=== PATIENT | female | born 1980 | race Caucasian/White ===

== ENCOUNTER 2021-05-07 10:17 | Outpatient (CLI) | payer OTHER, SELFPAY ==
[2021-05-07 10:48] VITALS: BP 135/93; PULSE 84; RESP 18; TEMP 36.1; O2SAT 95; BMI 37.8
[2021-05-07 12:44] VITALS: BP 122/84; PULSE 83; RESP 17; TEMP 36.1; O2SAT 98
[2021-05-07 13:33] VITALS: BP 127/89; PULSE 71; RESP 17; TEMP 36.4; O2SAT 98
[2021-05-07 13:35] VITALS: BP 127/89; PULSE 71; RESP 17; TEMP 36.1; O2SAT 98
== END 2021-05-07 10:18 | disposition home or self-care (01) ==
PROVIDERS: PCP Family Medicine; Visit Provider Nurse Practitioner Family
DX: U07.1 COVID-19 (principal)
CPT/HCPCS: 96365

== ENCOUNTER 2022-01-06 16:20 | Outpatient (CLI) | payer OTHER, SELFPAY ==
--- NOTE | 2022-01-06 16:30 | XR_ITS ---
WS: [id number] Exam: XR foot RT min 3V* [id number] Date/Time of Exam: 01/06/2022 4:30 PM Reason For Exam: RIGHT FOOT PAIN, INJURY No fracture or dislocation. Articular relationships appear normal. No soft tissue foreign bodies are seen. Tiny plantar heel spur. XR/XR foot RT min 3V* [id number] IMPRESSION: 1. No acute fracture or other significant finding.
== END 2022-01-06 16:21 | disposition home or self-care (01) ==
LOC: RAD 16:22
PROVIDERS: PCP Family Medicine; Visit Provider Family Medicine
DX: M79.671 Pain in right foot (principal); S99.921A Unspecified injury of right foot, initial encounter; X58.XXXA Exposure to other specified factors, initial encounter
CPT/HCPCS: 73630

== ENCOUNTER → 2023-04-28 10:21 | Outpatient (BNVA) | payer OTHER, SELFPAY | PROVIDERS: PCP Family Medicine; Visit Provider Family Medicine | DX: E66.9 Obesity, unspecified (principal); E66.01 Morbid (severe) obesity due to excess calories; Z68.41 Body mass index [BMI] 40.0-44.9, adult | CPT/HCPCS: 80053; 80061; 85025 ==

== ENCOUNTER 2023-12-21 15:50 | Outpatient (CLI) | payer OTHER, SELFPAY ==
--- NOTE | 2023-12-21 16:00 | MR_ITS ---
WS: [id number] MRI LEFT SHOULDER HISTORY: progressive pain/dysfunction p month....over 1+ yr dysfuncti COMPARISON: 04/04/2014 TECHNIQUE: Multiplanar sequences of the shoulder joint are submitted. Very minimal AC joint arthropathy. There is a small amount of fluid in the AC joint. No significant s ubacromial impingement. No subacromial-subdeltoid bursal fluid. No os acromion. Normal position of th e biceps tendon. No fractures or marrow edema. No muscle atrophy or edema. There is fluid in the expected location of the middle glenohumeral ligament. The ligament was well visualized on the study from 2013. The adjace nt anterior labrum is also slightly irregular with surface fraying. The subscapularis tendon is intac t. Abnormal signal consistent with a tear in the anterior superior labrum. Suspect the middle glenohu meral ligament is atrophied or torn also. MR/MR shoulder LT wo con* [id number] IMPRESSION: 1. Abnormal signal within the anterior superior labrum and middle glenohumeral ligament. Labral tear involving the anterior superior labrum with the adjacent middle glenohumeral ligament being torn or atrophied. There is fluid at the si te of the middle glenohumeral ligament. These findings were not present in 2014 . 2. No rotator cuff tear.
== END 2023-12-21 15:51 | disposition home or self-care (01) ==
LOC: RAD 15:51
PROVIDERS: PCP Family Medicine; Visit Provider Family Medicine
DX: S46.212A Strain of muscle, fascia and tendon of other parts of biceps, left arm, initial encounter (principal); M75.102 Unspecified rotator cuff tear or rupture of left shoulder, not specified as traumatic; Z98.890 Other specified postprocedural states; Y99.9 Unspecified external cause status; S43.432A Superior glenoid labrum lesion of left shoulder, initial encounter; X58.XXXA Exposure to other specified factors, initial encounter
CPT/HCPCS: 73221

== ENCOUNTER 2024-06-06 11:08 | Emergency (ER) | payer OTHER, SELFPAY ==
[2024-06-06 11:32] VITALS: BP 148/85; PULSE 81; RESP 17; TEMP 36.8; O2SAT 97; BMI 35.6
[2024-06-06 11:48] LABS: Bilirubin Urine Negative (Negative); Blood Urine Negative (Negative); Glucose Urine UA Negative (Normal); Ketones Urine Negative (Negative); Leukocyte Esterase Urine Negative (Negative); Nitrate Urine Negative (Negative); Protein Urine Negative (Negative); Specific Gravity, Urine 1.025 (1.005-1.030); Urine Appearance Clear (CLEAR); Urine Color Yellow (Yellow); Urobilinogen Urine 0.2 mg/dL (Negative); pH Urine 5.5 (5-7)
[2024-06-06 11:53] LABS: Add Urine Microscopic? YES; Bacteria Urine None Seen /hpf; Hyaline Casts Urine 0-4 /lpf; RBC Urine 0-2 /hpf (0-2); Squamous Epithelial Cell Urine 0-5 /hpf (0-5); WBC Urine 0-5 /hpf (0-5)
[2024-06-06 11:55] LABS: Basophils % 0.5 %; Eosinophils # 0.1 10^3/uL (0.0-0.8); Hematocrit 44.1 % (36-47); Lymphocytes # 1.7 10^3/uL (0.8-4.8); Lymphocytes % 28.8 %; Mean Corpuscular HGB Conc 32.2 g/dL (30-55); Mean Corpuscular Hemoglobin 30.6 pg (27-33); Mean Platelet Volume 9.6 fL (7.4-10.4); Monocytes # 0.3 10^3/uL (0.2-0.9); Monocytes % 5.8 %; Neutrophils # 3.77 10^3/uL (1.8-7.7); Neutrophils % 63.7 %; Nucleated Red Blood Cells % 0 %; Platelet Count 229 10^3/cmm (157-399); Red Blood Count 4.64 10^6/uL (3.85-5.65); Red Cell Distribution Width 13.1 % (12.1-15.1); White Blood Count 5.91 10^3/uL (3.29-11.43)
--- NOTE | 2024-06-06 12:01 | CT_ITS ---
WS: [id number] CT ABDOMEN PELVIS TECHNIQUE: Contrast-enhanced CT of the abdomen and pelvis with coronal and sagittal reformatted image s. CLINICAL INFORMATION: abd pain COMPARISON: CT 2012. DLP: 910.[address] scans at [facility] use at least one of these dose optimization techniques: automated e xposure control; mA and/or kV adjustment per patient size (includes targeted exams where dose is matc hed to clinical indication); or iterative reconstruction. FINDINGS: Hepatomegaly. Diffuse fatty infiltration of the liver. Prior cholecystectomy. Normal spleen. Normal p ancreatic parenchymal enhancement. Adrenal glands are normal. Lung bases are well aerated. Stable par tially calcified cyst upper pole LEFT kidney. Normal renal parenchymal enhancement. No hydronephrosis . Tiny fat-containing umbilical hernia. Disc osteophyte complexes L4-L5 and L5-S1 with mild central c anal stenosis unchanged. Prior tubal ligation. Normal sigmoid colon. No evidence of small or large bowel obstruction. Few sigmoid diverticuli. No ev idence of acute diverticulitis. No other acute findings. CT/CT abdomen pelvis w con* [id number] IMPRESSION: 1. No evidence of acute appendicitis. 2. Diffuse fatty infiltration of the liver. 3. Hepatomegaly. 4. Prior tubal ligation and cholecystectomy. 5. No other acute findings.
[2024-06-06 12:04] VITALS: BP 140/86; PULSE 87; O2SAT 97
[2024-06-06 12:06] LABS: HCG, Serum Qual Negative (Negative)
[2024-06-06 12:12] LABS: Alanine Aminotransferase < 5 U/L (0-33); Albumin Level 4.1 g/dL (3.5-5.2); Alkaline Phosphatase 77 U/L (35-105); Anion Gap 16.9 (5-19); Aspartate Amino Transferase 10 U/L (0-32); Blood Urea Nitrogen 12 mg/dL (6-20); Calcium 8.4 mg/dL (8.5-10.5); Carbon Dioxide 19 mmol/L (22-29); Chloride 103 mmol/L (98-107); Creatinine Clr Calc Pharmacy 113.0481; Globulin 2.4 g/dL (1.3-4.6); Glomerular Filtration Rate 90.5 mL/min (90-130); Glucose 95 mg/dL (65-115); Lipase 73 U/L (13-60); Osmolality Calculated 280 mOsm/kg (285-295); Potassium 3.9 mmol/L (3.5-5.1); Sodium 135 mmol/L (136-145); Total Bilirubin 0.3 mg/dL (0.15-1.2); Total Protein 6.5 g/dL (6.6-8.7)
--- NOTE | 2024-06-06 12:29 | ED_ITS ---
HPI - Abdominal Pain 2 General: Chief Complaint: Abdominal Pain Stated Complaint: abd pain Time Seen by Provider: 06/06/24 11:55 Source: patient Mode of arrival: ambulatory Limitations: no limitations History of Present Illness: 43-year-old female who states that she h as been having abdominal pain over the last 2 days. States pain is worsened today it is in her right lower quadrant states much worse with movement states at rest her pain improves is currently 2 out of 10 she denies any dysuria denies any vomiting denies any diarrhea. Associated Symptoms: Denies chills, diarrhea, dysuria, fever(s), nausea and vomiting Related Data Home Medications Medication Instructions Recorded Confirmed ibuprofen 200 mg capsule 600 mg PO Q6H PRN Pain, Mild 05/07/21 06/06/24 Previous Rx's Medication Instructions Recorded cyclobenzaprine 10 mg tablet 10 mg PO BID PRN muscle spasm #60 05/12/23 tabs sumatriptan succinate 100 mg 100 mg PO Q2H PRN migraine 05/12/23 tablet (Imitrex) headache #20 tabs Allergies Allergy/AdvReac Type Severity Reaction Status Date / Time No Known Allergies Allergy Verified 05/09/24 09:53 Review of Systems 2 Const: Denies: fever(s), chills, body aches or change in appetite ENMT: Denies: throat pain or dental pain Card: Denies: chest pain Resp: Denies: dyspnea GI: Reports: abdominal pain; Denies: nausea, vomiting or diarrhea : Denies: dysuria Musc: Denies: neck pain or back pain Skin/Breast: Denies: rash Neuro: Denies: headache(s) PFSH ED 2 PFSH: Social History Smoking and tobacco/nicotine status: current every day tobacco/nicotine user Alcohol intake: never Substance/Drug Use: never Physical Exam 2 Const: COMMON NORMALS: no acute distress, patient oriented x3 and healthy appearing HENMT: COMMON NORMALS: normocephalic and atraumatic HEAD & SCALP: n ormocephalic and atraumatic Eye: COMMON NORMALS: conjunctivae normal CONJUNCTIVA: Yes conjunctivae normal Neck/C-Spine: COMMON NORMALS: full ROM and supple Chest: COMMONS NORMALS: normal inspection of the chest Resp: COMMON NORMALS: normal respiratory effort Cardio: COMMON NORMALS: regular rate, regular rhythm and No murmurs present (Cardio) RATE: regular rate RHYTHM: regular rhythm GI: COMMON NORMALS: Normal to inspection, nondistended, normoactive bowel sounds present, Soft to palpation and no masses PALPATION: Yes Soft to palpation and Yes Tenderness to palpation present (GI) Details: RLQ Extremity: COMMON NORMALS: normal to inspection and full ROM Neuro: COMMON NORMALS: patient oriented x3, moves all extremities and no focal motor deficits Psych: COMMON NORMALS: mental status grossly normal, Normal thought process present and cooperative THOUGHT PROCESS: Normal thought process present Skin: COMMON NORMALS: no rashes or lesions noted and no wounds GENERAL SKIN EXAM: no rashes or lesions noted Course 2 Vital Signs: Vital signs: Vital Signs Temperature 98.3 F 06/06/24 11:32 Pulse Rate 80 06/06/24 12:34 Respiratory Rate 17 06/06/24 11:32 Blood Pressure 126/86 06/06/24 12:34 Pulse Oximetry 97 06/06/24 12:34 Oxygen Delivery Me thod Room Air 06/06/24 11:32 MDM - Abdominal Pain Medical Decision Making Patient presents with abdominal pain CT showed no acute findings her pain is much improved exam at discharge benign she stable for discharge follow-up PCP return if worsening. Medical Records I reviewed the patient's medical records. Lab Data I reviewed the patient's lab results. 06/06/24 11:50 06/06/24 11:50 Labs/Radiology: Radiology Impressions Abdomen/Pelvis CT 06/06/24 12:01 IMPRESSION: 1. No evidence of acute appendicitis. 2. Diffuse fatty infiltration of the liver. 3. Hepatomegaly. 4. Prior tubal ligation and cholecystectomy. 5. No other acute findings. Laboratory Results WBC 5.91 10^3/uL (3.29-11.43) 06/06/24 11:50 RBC 4.64 10^6/uL (3.85-5.65) 06/06/24 11:50 Hgb 14.20 g/dL (11.27-16.99) 06/06/24 11:50 Hct 44.1 % (36-47) 06/06/24 11:50 MCV 95.0 fl (85-98) 06/06/24 11:50 MCH 30.6 pg (27-33) 06/06/24 11:50 MCHC 32.2 g/dL (30-55) 06/06/24 11:50 RDW 13.1 % (12.1-15.1) 06/06/24 11:50 Plt Count 229 10^3/cmm (157-399) 06/06/24 11:50 MPV 9.6 fL (7.4-10.4) 06/06/24 11:50 Neut % (Auto) 63.7 % 06/06/24 11:50 Lymph % (Auto) 28.8 % 06/06/24 11:50 Emmons % (Auto) 5.8 % 06/06/24 11:50 Eos % (Auto) 1.0 % 06/06/24 11:50 Baso % (Auto) 0.5 % 06/06/24 11:50 Neut # (Auto) 3.77 10^3/uL (1.8-7.7) 06/06/24 11:50 Lymph # (Auto) 1.7 10^3/uL (0.8-4.8) 06/06/24 11:50 Emmons # (Auto) 0.3 10^3/uL (0.2-0.9) 06/06/24 11:50 Eos # (Auto) 0.1 10^3/uL (0.0-0.8) 06/06/24 11:50 Baso # (Auto) 0.0 10^3/uL (0.0-0.1) 06/06/24 11:50 Nucleated RBC % (auto) 0 % 06/06/24 11:50 Nucleated RBCs # 0.0 /100WBC 06/06/24 11:50 Sodium 135 mmol/L (136-145) L 06/06/24 11:50 Potassium 3.9 mmol/L (3.5-5.1) 06/06/24 11:50 Chloride 103 mmol/L (98-107) 06/06/24 11:50 Carbon Dioxide 19 mmol/L (22-29) L 06/06/24 11:50 Anion Gap 16.9 (5-19) 06/06/24 11:50 BUN 12 mg/dL (6-20) 06/06/24 11:50 Creatinine 0.7 mg/dL (0.5-0.9) 06/06/24 11:50 GFR Calculation 90.5 mL/min (90-130) 06/06/24 11:50 Glucose 95 mg/dL (65-115) 06/06/24 11:50 Calculated Osmolality 280 mOsm/kg (285-295) L 06/06/24 11:50 Calcium 8.4 mg/dL (8.5-10.5) L 06/06/24 11:50 Total Bilirubin 0.3 mg/dL (0.15-1.2) 06/06/24 11:50 AST 10 U/L (0-32) 06/06/24 11:50 ALT < 5 U/L (0-33) 06/06/24 11:50 Alkaline Phosphatase 77 U/L (35-105) 06/06/24 11:50 Total Protein 6.5 g/dL (6.6-8.7) L 06/06/24 11:50 Albumin 4.1 g/dL (3.5-5.2) 06/06/24 11:50 Globulin 2.4 g/dL (1.3-4.6) 06/06/24 11:50 Lipase 73 U/L (13-60) H 06/06/24 11:50 HCG, Qual Negative (Negative) 06/06/24 11:50 Urine Color Yellow (Yellow) 06/06/24 11:37 Urine Appearance Clear (CLEAR) 06/06/24 11:37 Urine pH 5.5 (5-7) 06/06/24 11:37 Ur Specific Lefor 1.025 (1.005-1.030) 06/06/24 11:37 Urine Protein Negative (Negative) 06/06/24 11:37 Urine Glucose (UA) Negative (Normal) 06/06/24 11:37 Urine Ketones Negative (Negative) 06/06/24 11:37 Urine Blood Negative (Negative) 06/06/24 11:37 Urine Nitrate Negative (Negative) 06/06/24 11:37 Urine Bilirubin Negative (Negative) 06/06/24 11:37 Urine Urobilinogen 0.2 mg/dL (Negative) 06/06/24 11:37 Ur Leukocyte Esterase Negative (Negative) 06/06/24 11:37 Urine RBC 0-2 /hpf (0-2) 06/06/24 11:37 Urine WBC 0-5 /hpf (0-5) 06/06/24 11:37 Ur Squamous Epith Cells 0-5 /hpf (0-5) 06/06/24 11:37 Amorphous Sediment Not Reportable 06/06/24 11:37 Urine Bacteria None seen /hpf (NONE) 06/06/24 11:37 Hyaline Casts 0-4 /lpf H 06/06/24 11:37 All radiology interpretation(s) finalized by discharge Discharge Plan Discharge Patient Disposition: Home Clinical Impression: Abdominal pain Condition: Stable Prescriptions: No Action sumatriptan succinate [Imitrex] 100 mg tablet 100 mg PO Q2H PRN (Reason: migraine headache) Qty: 20 1RF Rx Instructions: do not exceed 2 doses per 24 hrs cyclobenzaprine 10 mg tablet 10 mg PO BID PRN (Reason: muscle spasm) Qty: 60 1RF ibuprofen 200 mg Capsule 600 mg PO Q6H PRN (Reason: Pain, Mild) Discharge Orders: Discharge ED (Routine); Ordered 06/06/24 Ordered By: Edgar Jimenez Referrals: Constantino Bernal MD [Primary Care Provider] - 4-7 days Discharge Diet: Advance as tolerated Discharge Activity: Resume usual activity Patient Instructions: Abdominal Pain (ED) Coding Level of Care Code ED Payroll Representative for Loli Castillo
[2024-06-06 12:34] VITALS: BP 126/86; PULSE 80; O2SAT 97
[2024-06-06] MEDS: iohexol 350 mg/mL 500 mL Btl (per mL) IV (12:42)
[2024-06-06 13:52] VITALS: BP 134/94; PULSE 80; O2SAT 99
== END 2024-06-06 13:54 | disposition home or self-care (01) ==
PROVIDERS: Emergency Provider Emergency Medicine; PCP Family Medicine
DX: R10.9 Unspecified abdominal pain (principal); Z72.0 Tobacco use
CPT/HCPCS: 36415; 74177; 80053; 81001; 83690; 84703; 85025; 99285

== ENCOUNTER 2024-09-29 13:02 | Outpatient (CLI) | payer OTHER, SELFPAY ==
--- NOTE | 2024-09-29 13:20 | MM_ITS ---
WS: [id number] SCREENING DIGITAL TOMOSYNTHESIS MAMMOGRAM WITH CAD HISTORY: SCREENING COMPARISON: None available. Bilateral CC and MLO with tomosynthesis views submitted. Synthetic mammography reviewed. Computer aided detection analyzed. Breast composition: The breasts are heterogeneously dense, which may obscure small masses. No suspicious masses, microcalcifications or architectural distortion. MM/MM scr BI tomosynthesis [id number] IMPRESSION: BI-RADS: 1 - Negative FOLLOW UP: 1 Year Follow-up
== END 2024-09-29 13:03 | disposition home or self-care (01) ==
PROVIDERS: PCP Family Medicine; Visit Provider Family Medicine
DX: Z12.31 Encounter for screening mammogram for malignant neoplasm of breast (principal); R92.333 Mammographic heterogeneous density, bilateral breasts
CPT/HCPCS: 77063; 77067